=== PATIENT | female | born 1970 | race Two or more races ===

== ENCOUNTER → 2024-11-28 | Outpatient (CLI) | payer MEDICAID, SELFPAY ==
--- NOTE | 2024-11-28 16:00 | XR_ITS ---
Examination: Breast ultrasound, unilateral, left complete Date and time of exam: November 28, 2024 1611 hrs. Indications: History left axillary lymph node biopsy with breast biopsy marker December 08, 2023 measuring 2.7 x 2.9 x 1.2 cm Technique: Real-time coleman scale ultrasonographic imaging performed left breast including all 4 quadrants as well as nipple retroareolar and axillary region. Findings: No cystic or solid masses Benign left axillary lymph node 12 x 14 mm Impression: BI-RADS Category 2: Benign findings
== END | disposition home or self-care (01) ==
PROVIDERS: PCP Physician Assistant; Referring Provider Physician Assistant; Visit Provider Physician Assistant
DX: R59.9 Enlarged lymph nodes, unspecified (principal)
CPT/HCPCS: 76641